=== PATIENT | female | born 1960 | race Hispanic/Latino ===

== ENCOUNTER 2023-07-31 13:13 | Observation (INO) | payer SELFPAY ==
[2023-07-31] MEDS ORDERED: DIAZEPAM 2 MG TABLET ONE (14:00)
[2023-07-31] MEDS ORDERED: DIAZEPAM 10 MG/2 ML INJ SYRINGE ONE (14:04)
[2023-07-31] MEDS ORDERED: ONDANSETRON 4 MG/2 ML VIAL ONE (14:05)
[2023-07-31 14:06] LABS: Absolute Lymphocytes (CBC) 2.2 K/uL (0.7-4.9); Hematocrit 41.7 % (36.0-45.0); Lymphocytes % 15.1 % (15.3-44.8); MCV 87.9 fL (80-100); MPV 8.2 fL (7.6-11.3); Platelets 293 thou/uL (152-406); RBC Red Blood Cell Count 4.75 M/uL (3.86-4.86)
[2023-07-31 14:24] LABS: ALT/SGPT 21 U/L (13-56); AST/SGOT 15 U/L (15-37); Albumin 3.5 g/dL (3.4-5.0); Alkaline Phosphatase 116 U/L (45-117); BUN Blood Urea Nitrogen 17 mg/dL (7-18); Bicarbonate 22 mEq/L (21-32); Bilirubin Total 0.3 mg/dL (0.2-1.0); Glomerular Filtration Rate 81 ml/min (=/>90); Glucose Level 157 mg/dL (74-106); Magnesium 2.3 mg/dL (1.6-2.4); Potassium 3.7 mEq/L (3.5-5.1); Protein, Total 7.7 g/dL (6.4-8.2); Sodium Level 134 mEq/L (136-145); Troponin High Sensitivity 5.1 pg/mL (<58.9)
[2023-07-31 14:26] LABS: Bilirubin Direct < 0.1 mg/dL (0-0.2); Bilirubin Indirect, Calculated ND mg/dL (0.2-0.8)
--- NOTE | 2023-07-31 14:27 | RAD REPORT ---
EXAM DESCRIPTION: RAD - Chest Single View - 07/31/2023 2:05 pm CLINICAL HISTORY: DYSPNEA Chest pain. COMPARISON: <Comparisons> FINDINGS: Portable technique limits examination quality. Mild bilateral pulmonary opacities are present which may indicate mild interstitial edema. The heart is normal in size. No displaced fractures.
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
[2023-07-31] MEDS ORDERED: AMLODIPINE 10 MG TAB ONE (15:33)
[2023-07-31] MEDS ORDERED: NA CHLORIDE 0.9% 1,000 ML ONE (16:09)
[2023-07-31] MEDS ORDERED: ONDANSETRON 4 MG/2 ML VIAL IV PRN (18:56)
[2023-07-31] MEDS ORDERED: ACETAMINOPHEN 325 MG TABLET PO PRN (18:56)
--- NOTE | 2023-07-31 18:56 | P.HP ---
Certification for Inpatient Patient admitted to: Observation With expected LOS: <2 Midnights Practitioner: I am a practitioner with admitting privileges, knowledge of patient current condition, hospital course, and medical plan of care. Services: Services provided to patient in accordance with Admission requirements found in Title 42 Section 412.3 of the Code of Federal Regulations Patient History Date of Service: 08/01/23 Reason for admission: Hypertensive urgency, weakness, panic attacks. History of Present Illness: 62-year-old female patient was medical history significant for anxiety disorder, hypertension and who came to the ED with complaint of feeling anxious and weak. She reported having run out of medication for couple of weeks and in the ED she was she was found to have elevated blood pressure with systolic over 200. She also has significant tachycardia. Labs done in the ED concerning for elevated white cell of 14,000 however other labs are within acceptable limit. She did also report borderline diabetes with her blood sugar in the 150s. She was given pain control medication, antianxiety medication of diazepam and also blood pressure control medication of amlodipine for control of significantly elevated systolic blood pressure. She was observed for a period in the ED and her blood pressure continued to be persistently elevated so she was admitted for monitoring of blood pressure and symptom control. She denies chest pain, diarrhea episode. Allergies Sulfa (Sulfonamide Antibiotics) Allergy (Verified 07/31/23 22:01) Hives/Rash Home Medications: NK [No Home Meds] 07/31/23 Review of Systems General: Weakness, Malaise Eyes: Unremarkable ENT: Unremarkable Respiratory: Unremarkable Cardiovascular: Unremarkable Gastrointestinal: Unremarkable Genitourinary: Unremarkable Musculoskeletal: Unremarkable Integumentary: Unremarkable Neurological: Unremarkable Lymphatics: Unremarkable Physical Examination - Physical Exam General: Oriented x3 HEENT: Atraumatic, Normocephalic Neck: Supple Respiratory: Normal air movement Cardiovascular: Regular rate/rhythm, Normal S1 S2 Gastrointestinal: Soft and benign Musculoskeletal: No swelling Neurological: Normal speech, Normal strength at 5/5 x4 extr - Studies Laboratory Data (last 24 hrs) 07/31/23 07/31/23 13:54 13:54 WBC 14.60 H Hgb 14.2 Hct 41.7 Plt Count 293 Sodium 134 L Potassium 3.7 BUN 17 Creatinine 0.81 Glucose 157 H Magnesium 2.3 Total Bilirubin 0.3 AST 15 ALT 21 Alkaline Phosphatase 116 Assessment and Plan - Plan Hypertension: Poorly controlled deemed secondary to medication noncompliance. Will continue empiric antibiotic therapy with amlodipine 10 mg p.o. daily. Monitor vitals per unit protocol. Goal blood pressures less than 130/80 mmHg. Weakness: Etiology to be fully determined. Suspicion for UTI due to to elevated white cell. Will obtain urinalysis with reflex culture. Will follow clinical symptomatology Anxiety disorder: Had diazepam dose however she felt more weak. Follow symptomatology closely. May consider SSRI for management. Borderline diabetes: Patient did report that she was told by her primary care doctor that she has borderline diabetes. Continue blood glucose checks ACHS and mild sliding scale insulin for glucose control. Prophylaxis: Lovenox for DVT prophylaxis. CODE STATUS: Full code. Disposition: We will treat poorly controlled hypertension, monitor symptomatology and she will discharge when she is deemed clinically stable. - Advance Directives Does patient have a Living Will: No Does patient have a Durable POA for Healthcare: No
[2023-07-31] MEDS: INSULIN REGULAR (HUMAN) 100 UNIT/ML SQ SCH (21:00)
[2023-07-31] MEDS: ENOXAPARIN 40 MG/0.4 ML SQ SCH (23:44)
[2023-08-01 00:27] VITALS: BMI 32.9
[2023-08-01 04:43] VITALS: O2SAT 96
[2023-08-01] MEDS: INSULIN REGULAR (HUMAN) 100 UNIT/ML SQ SCH ×4 (07:30→19:58)
[2023-08-01 07:56] LABS: Specific Gravity 1.006 (1.005-1.030); Urine Bacteria <20 /HPF (<20); Urine Bilirubin NEGATIVE (Negative); Urine Blood 1+ (Negative); Urine Clarity Turbid (Clear); Urine Color Colorless (Yellow); Urine Glucose NEGATIVE (Negative); Urine Protein NEGATIVE (Negative); Urine RBC <5 /HPF (None Seen); Urine Urobilinogen Normal (Normal); Urine pH 6.5 (5.0-7.0)
[2023-08-01 08:48] LABS: Absolute Lymphocytes (CBC) 2.6 K/uL (0.7-4.9); Hematocrit 42.6 % (36.0-45.0); Lymphocytes % 22.3 % (15.3-44.8); MCV 87.2 fL (80-100); MPV 8.1 fL (7.6-11.3); Platelets 303 thou/uL (152-406); RBC Red Blood Cell Count 4.89 M/uL (3.86-4.86)
[2023-08-01 09:08] LABS: Potassium 3.8 mEq/L (3.5-5.1)
[2023-08-01] MEDS: AMLODIPINE 10 MG TAB PO SCH (10:40)
[2023-08-01] MEDS: ENOXAPARIN 40 MG/0.4 ML SQ SCH (10:40)
--- NOTE | 2023-08-01 18:12 | P.PN ---
Subjective Date of Service: 08/01/23 Chief Complaint: Hypertensive urgency, weakness, panic attacks. Subjective: No new changes, Improving, Doing well Patient is alert and oriented x 3 Resting in the bed NAD Denies any pain or shortness of breath Vital stable <Jaylin Boykin - Last Filed: 08/01/23 18:12> Date of Service: 08/03/23 <Estrella Dumont - Last Filed: 08/03/23 17:14> Review of Systems 10-point ROS is otherwise unremarkable <Jaylin Boykin - Last Filed: 08/01/23 18:12> Physical Examination - Vital Signs Temperature: 98.3 F Blood Pressure: 172/71 Pulse: 80 Respirations: 18 Pulse Ox (%): 97 - Physical Exam General: Alert, Oriented x3 HEENT: Atraumatic, Normocephalic Neck: Supple, 2+ carotid pulse no bruit Respiratory: Clear to auscultation bilaterally, Normal air movement Cardiovascular: No edema, Normal pulses Capillary refill: <2 Seconds Gastrointestinal: Normal bowel sounds, Soft and benign, Non-distended Musculoskeletal: No clubbing, No swelling Integumentary: No rashes, No breakdown Neurological: Normal gait, Normal speech <Jaylin Boykin - Last Filed: 08/01/23 18:12> Assessment And Plan - Plan Improving Started on amlodipine 10 mg p.o. daily. Monitor vitals per unit protocol. Goal blood pressures less than 130/80 mmHg. Weakness: Etiology to be fully determined. Suspicion for UTI due to to elevated white cell. Will obtain urinalysis with reflex culture. Will follow clinical symptomatology Anxiety disorder: Had diazepam dose however she felt more weak. Follow symptomatology closely. May consider SSRI for management. Borderline diabetes: Patient did report that she was told by her primary care doctor that she has borderline diabetes. Continue blood glucose checks ACHS and mild sliding scale insulin for glucose control. Prophylaxis: Lovenox for DVT prophylaxis. CODE STATUS: Full code. Disposition: We will treat poorly controlled hypertension, monitor symptomatology and she will discharge when she is deemed clinically stable. Discharge Plan: Home Plan to discharge in: 24 Hours - Code Status/Comfort Care Code Status Assessed: Yes (full code) Code Status: Full Code Physician Review: Patient Assessed, Agree with Above Assessment and Plan Critical Care: No Time Spent Managing PTS Care (In Minutes): 35 (minutes) <Jalyin Boykin - Last Filed: 08/01/23 18:12> - Plan Pt seen and examined. I agree with the note by the [employer] BUSINESS REPRESENTATIVE. UA is negative for UTI. Consulted PT for deconditioning. BP has improved. <Estrella Dumont - Last Filed: 08/03/23 17:14>
[2023-08-02] MEDS: INSULIN REGULAR (HUMAN) 100 UNIT/ML SQ SCH ×2 (07:30→11:30)
[2023-08-02] MEDS: AMLODIPINE 10 MG TAB PO SCH (08:21)
[2023-08-02] MEDS: ENOXAPARIN 40 MG/0.4 ML SQ SCH (08:22)
[2023-08-02 09:12] LABS: Absolute Lymphocytes (CBC) 2.8 K/uL (0.7-4.9); Lymphocytes % 28.5 % (15.3-44.8); MCV 87.5 fL (80-100); MPV 7.8 fL (7.6-11.3); Platelets 300 thou/uL (152-406); RBC Red Blood Cell Count 4.91 M/uL (3.86-4.86)
[2023-08-02 09:25] LABS: Potassium 3.6 mEq/L (3.5-5.1)
[2023-08-02 10:27] LABS: Specific Gravity 1.008 (1.005-1.030); Urine Bacteria 20-50 /HPF (<20); Urine Bilirubin NEGATIVE (Negative); Urine Blood 1+ (Negative); Urine Clarity Turbid (Clear); Urine Color Light-Yellow (Yellow); Urine Glucose NEGATIVE (Negative); Urine Mucus Slight /HPF (None Seen); Urine Protein NEGATIVE (Negative); Urine RBC <5 /HPF (None Seen); Urine Urobilinogen Normal (Normal)
--- NOTE | 2023-08-02 15:27 | P.DS ---
Admission Date: 07/31/23 Discharge Date: 08/02/23 Reason for Admission: Hypertensive urgency, weakness, panic attacks. Brief History of Present Illness: History of Present Illness: 62-year-old female patient was medical history significant for anxiety disorder, hypertension and who came to the ED with complaint of feeling anxious and weak. She reported having run out of medication for couple of weeks and in the ED she was she was found to have elevated blood pressure with systolic over 200. She also has significant tachycardia. Labs done in the ED concerning for elevated white cell of 14,000 however other labs are within acceptable limit. She did also report borderline diabetes with her blood sugar in the 150s. She was given pain control medication, antianxiety medication of diazepam and also blood pressure control medication of amlodipine for control of significantly elevated systolic blood pressure. She was observed for a period in the ED and her blood pressure continued to be persistently elevated so she was admitted for monitoring of blood pressure and symptom control. She denies chest pain, diarrhea episode. Hospital Course: This is a pleasant 62-year-old female patient with a past medical history si gnificant for anxiety disorder, hypertension who was admitted to the [facility] on 07/31/2023 for anxiety and weakness. Patient was admitted with poorly controlled blood pressure, amlodipine 10 mg p.o. daily was started. Patient also noted to have difficulty walking, physical therapy was consulted. Recommended a walker to assist with walking. Discussed the fall precautions. On 08/02/2023, patient was seen on morning rounds and deemed medically stable for discharge. Patient was discharged with instructions to schedule follow-up appointments with PCP 3 to 5 days. Patient was provided prescriptions for amlodipine 10 mg p.o. daily. The patient was given the opportunity to ask questions and reported no further questions. Furthermore, all questions were answered to the best of my ability. 1. Please call and schedule a follow-up appointment with your PCP in 3-5 days - Please follow-up with your PCP for medication refills/adjustments <Jaylin Boykin - Last Filed: 08/02/23 15:25> Admission Date: 07/31/23 Discharge Date: 08/03/23 Hospital Course: Pt seen and examined. I agree with the note by the FIGURE MODEL. Ok to discharge. <Estrella Dumont - Last Filed: 08/03/23 14:04> Disposition: ROUTINE DISCHARGE Discharge Condition: GOOD Vital Signs/Physical Exam: Temp Pulse Resp BP Pulse Ox 97.9 F 66 14 176/78 H 98 08/02/23 12:00 08/02/23 12:00 08/02/23 12:00 08/02/23 12:00 08/02/23 12:00 General: Alert, In no apparent distress HEENT: Atraumatic, Normocephalic Neck: Supple, 2+ carotid pulse no bruit Respiratory: Clear to auscultation bilaterally, Normal air movement Cardiovascular: No edema, Normal pulses Capillary refill: <2 Seconds Gastrointestinal: Normal bowel sounds, Soft and benign Musculoskeletal: No clubbing, No swelling Integumentary: No rashes, No breakdown Neurological: Normal speech, Normal reflexes 2+ Laboratory Data at Discharge: WBC 9.90 thou/uL (4.3-10.9) 08/02/23 08:47 Hgb 14.6 g/dL (12.0-15.0) 08/02/23 08:47 Hct 43.0 % (36.0-45.0) 08/02/23 08:47 Plt Count 300 thou/uL (152-406) 08/02/23 08:47 Sodium 136 mEq/L (136-145) 08/02/23 08:47 Potassium 3.6 mEq/L (3.5-5.1) 08/02/23 08:47 BUN 17 mg/dL (7-18) 08/02/23 08:47 Creatinine 0.80 mg/dL (0.55-1.02) 08/02/23 08:47 Glucose 122 mg/dL (74-106) H 08/02/23 08:47 Magnesium 2.3 mg/dL (1.6-2.4) 07/31/23 13:54 Total Bilirubin 0.3 mg/dL (0.2-1.0) 07/31/23 13:54 AST 15 U/L (15-37) 07/31/23 13:54 ALT 21 U/L (13-56) 07/31/23 13:54 Alkaline Phosphatase 116 U/L (45-117) 07/31/23 13:54 Triglycerides 349 mg/dL (<150) H 08/01/23 08:31 Cholesterol 273 mg/dL (<200) H 08/01/23 08:31 HDL Cholesterol 49 mg/dL (40-60) 08/01/23 08:31 Cholesterol/HDL Ratio 5.57 08/01/23 08:31 <BoykinAhmetnam - Last Filed: 08/02/23 15:25> Vital Signs/Physical Exam: Temp Pulse Resp BP Pulse Ox 98.2 F 71 16 166/79 H 96 08/02/23 16:00 08/02/23 16:00 08/02/23 16:00 08/02/23 16:00 08/02/23 16:00 Laboratory Data at Discharge: WBC 9.90 thou/uL (4.3-10.9) 08/02/23 08:47 Hgb 14.6 g/dL (12.0-15.0) 08/02/23 08:47 Hct 43.0 % (36.0-45.0) 08/02/23 08:47 Plt Count 300 thou/uL (152-406) 08/02/23 08:47 Sodium 136 mEq/L (136-145) 08/02/23 08:47 Potassium 3.6 mEq/L (3.5-5.1) 08/02/23 08:47 BUN 17 mg/dL (7-18) 08/02/23 08:47 Creatinine 0.80 mg/dL (0.55-1.02) 08/02/23 08:47 Glucose 122 mg/dL (74-106) H 08/02/23 08:47 Magnesium 2.3 mg/dL (1.6-2.4) 07/31/23 13:54 Total Bilirubin 0.3 mg/dL (0.2-1.0) 07/31/23 13:54 AST 15 U/L (15-37) 07/31/23 13:54 ALT 21 U/L (13-56) 07/31/23 13:54 Alkaline Phosphatase 116 U/L (45-117) 07/31/23 13:54 Triglycerides 349 mg/dL (<150) H 08/01/23 08:31 Cholesterol 273 mg/dL (<200) H 08/01/23 08:31 HDL Cholesterol 49 mg/dL (40-60) 08/01/23 08:31 Cholesterol/HDL Ratio 5.57 01/18/24 08:31 <IsaiahalexaEstrella Mendoza - Last Filed: 08/03/23 14:04> Diet: Low sodium Activity: Ad kataryzna Physician Review: Patient Assessed, Agree with Above Assessment and Plan Time spent managing pt's care (in minutes): 55 (Minutes) <Milton Boykindominga - Last Filed: 08/02/23 15:25> <Estrella Dumont - Last Filed: 08/03/23 14:04> Home Medications: Amlodipine [Norvasc*] 10 mg PO DAILY 30 Days #30 tab 08/02/23 New Medications: Amlodipine [Norvasc*] 10 mg PO DAILY 30 Days #30 tab Physician Discharge Instructions: This is a pleasant 62-year-old female patient with a past medical history significant for anxiety disorder, hypertension who was admitted to the [facility] on 07/31/2023 for anxiety and weakness. Patient was admitted with poorly controlled blood pressure, amlodipine 10 mg p.o. daily was started. Patient also noted to have difficulty walking, physical therapy was consulted. Recommended a walker to assist with walking. Discussed the fall precautions. On 08/02/2023, patient was seen on morning rounds and deemed medically stable for discharge. Patient was discharged with instructions to schedule follow-up appointments with PCP 3 to 5 days. Patient was provided prescriptions for amlodipine 10 mg p.o. daily. The patient was given the opportunity to ask questions and reported no further questions. Furthermore, all questions were ans wered to the best of my ability. 1. Please call and schedule a follow-up appointment with your PCP in 3-5 days - Please follow-up with your PCP for medication refills/adjustments
[2023-08-02 16:57] VITALS: BP 166/79; TEMP 98.2
--- NOTE | 2023-08-05 17:12 | EKG ---
Test Date: 2023-07-31 Test Time: 14:04:39 Family Psychologist: LIDIA MEASUREMENT RESULTS: Intervals: Rate: 78 ID: [id number] QRSD: 98 QT: 406 QTc: 462 [place]: P: 51 ID: [id number] QRS: 56 T: 59 INTERPRETIVE STATEMENTS: Normal sinus rhythm Normal ECG Compared to ECG 05/29/2006 04:25:44 Sinus arrhythmia no longer present Electronically Signed On 08-05-23 16:57:46 [employer] by Glenroy Barger
== END 2023-08-02 17:42 | disposition home or self-care (01) ==
LOC: ER 13:13 → ERHOLD 18:56 → 2ND 22:13
PROVIDERS: ADMIT Internal Medicine Nephrology; ATTEND Hospitalist
DX: I16.0 Hypertensive urgency (principal); F41.9 Anxiety disorder, unspecified; R53.1 Weakness; R00.0 Tachycardia, unspecified; I10 Essential (primary) hypertension; R73.03 Prediabetes; R26.2 Difficulty in walking, not elsewhere classified; Z91.148 Patient's other noncompliance with medication regimen for other reason
CPT/HCPCS: 36415; 71045; 80048; 80061; 80076; 81001; 82947; 83036; 83735; 83880; 84484; 85025; 93005; 96361; 96374; 96375; 97112; 97116; 97161; 97530; 99285; G0378; J1650; J2405; J3360; J7030